=== PATIENT | male | born 1995 ===

== ENCOUNTER 2017-07-08 18:28 | Emergency (ER) | payer OTHER ==
[2017-07-08] MEDS ORDERED: LORazepam 0.5 MG Tab PO ONE (19:06)
[2017-07-08] MEDS ORDERED: LORazepam 0.5 MG Tab ONE (19:12)
[2017-07-08] MEDS ORDERED: Ondansetron 4 MG Tab.DIS ONE ×2 (19:37→20:00)
[2017-07-08] MEDS ORDERED: hydrOXYzine HCl 25 MG Tab ONE ×4 (19:57→20:33)
[2017-07-08] MEDS ORDERED: Zolpidem 5 MG Tab ONE ×2 (20:00→20:42)
[2017-07-08] MEDS ORDERED: Loperamide 2 MG Cap ONE ×2 (20:00→20:01)
--- NOTE | 2017-07-08 20:14 | EDM.PDOCBH ---
ED HPI GENERAL MEDICAL PROBLEM - General Chief Complaint: Drug or Alcohol Abuse Stated Complaint: HEROIN WITHDRAWAL-ABD PAIN; DIARRHEA Time Seen by Provider: 07/08/17 18:40 Source of Information: Reports: Patient, Family, RN History Limitations: Reports: No Limitations - History of Present Illness INITIAL COMMENTS - FREE TEXT/NARRATIVE: 21 yr male presents for withdrawal of heroin. He is with his parents and report are here from [place] and are fishing for a couple days. Parents states they would just like something for their son to help him through the withdrawals until they return home on . Mom states she works at [employer] in [employer] and is requesting Ativan to help pt settle down while waiting for ER visit. Pt states he has used Marijuana too lately. Onset: Today Onset Date: 07/08/17 Location: Reports: Abdomen, Lower Extremity, Left, Lower Extremity, Right, Other (restless legs and anxious) Improves with: Reports: Movement Worsens with: Reports: Rest Associated Symptoms: Reports: Loss of Appetite, Nausea/Vomiting. Denies: Diaphoresis Abdominal Pain Score (Numeric/FACES): 7 Bilateral Leg pain Pain Score (Numeric/FACES): 7 - Related Data Allergies Allergy/AdvReac Type Severity Reaction Status Date / Time amoxicillin Allergy Rash Verified 07/08/17 19:31 Penicillins Allergy Rash Verified 07/08/17 19:31 Home Meds: Home Meds NK [No Known Home Meds] 07/08/17 [History] ED ROS GENERAL - Review of Systems Review Of Systems: See Below Constitutional: Reports: No Symptoms HEENT: Reports: No Symptoms Respiratory: Reports: No Symptoms Cardiovascular: Reports: No Symptoms GI/Abdominal: Reports: Diarrhea, Nausea. Denies: Vomiting : Reports: No Symptoms Musculoskeletal: Reports: No Symptoms Skin: Reports: No Symptoms Neurological: Reports: No Symptoms Psychiatric: Reports: Anxiety. Denies: Confusion, Hallucinations ED EXAM, BEHAVIORAL HEALTH - Physical Exam Exam: See Below Exam Limited By: No Limitations General Appearance: Alert, WD/WN, Anxious Ears: Hearing Grossly Normal Nose: Normal Inspection Throat/Mouth: Normal Inspection, Normal Lips, Normal Voice Head: Atraumatic, Normocephalic Neck: Supple, Non-Tender Respiratory/Chest: No Respiratory Distress, Lungs Clear, Normal Breath Sounds Cardiovascular: Regular Rate, Rhythm, No Edema GI/Abdominal: Normal Bowel Sounds, Soft, Non-Tender Back Exam: Normal Inspection, Full Range of Motion Extremities: Normal Range of Motion, No Pedal Edema, Normal Capillary Refill Neurological: Alert, Normal Mood/Affect, Normal Cognition Psychiatric: Alert, Normal Cognition, Restless Skin Exam: Warm, Dry, Normal color COURSE, BEHAVIORAL HEALTH COMP - Course Vital Signs: Last Vital Signs Temp 99.0 F 07/08/17 18:43 Pulse 86 07/08/17 18:43 Resp 18 07/08/17 18:43 BP 121/73 07/08/17 18:43 Pulse Ox 99 07/08/17 18:43 Orders, Labs, Meds: Laboratory Tests 07/08/17 07/08/17 07/08/17 Range/Units 20:00 20:00 20:00 WBC 11.2 H (4.0-11.0) K/uL RBC 5.44 (4.50-6.50) M/uL Hgb 15.5 (13.0-18.0) g/dL Hct 43.9 (40.0-54.0) % MCV 81 (76-96) fL MCH 28.5 (27.0-32.0) pg MCHC 35.3 H (31.0-35.0) g/dL RDW 13.1 (11.0-16.0) % Plt Count 229 (150-400) K/uL MPV 9.5 (6.0-10.0) fL Neut % (Auto) 74.3 H (45.0-70.0) % Lymph % (Auto) 18.6 L (20.0-40.0) % Branch % (Auto) 6.7 (3.0-10.0) % Eos % (Auto) 0.3 L (1.0-5.0) % Baso % (Auto) 0.1 (0.0-0.5) % Neut # (Auto) 8.34 H (2.00-7.50) K/uL Lymph # (Auto) 2.08 (1.50-4.00) K/uL Branch # (Auto) 0.75 (0.20-0.80) K/uL Eos # (Auto) 0.03 L (0.04-0.40) K/uL Baso # (Auto) 0.01 L (0.02-0.10) K/uL Sodium 141 (136-145) mmol/L Potassium 3.8 (3.5-5.1) mmol/L Chloride 104 (98-107) mmol/L Carbon Dioxide 25.5 (21.0-32.0) mmol/L Anion Gap 15.3 H (5.0-15.0) mmol/L BUN 18 (8-26) mg/dL Creatinine 0.87 (0.70-1.30) mg/dL Est Cr Clr Drug Dosing TNP Estimated GFR (MDRD) > 60 (>60) MLS/MIN BUN/Creatinine Ratio 20.7 (6-25) Glucose 90 (74-100) mg/dL Calcium 9.5 (8.5-10.1) mg/dL Total Bilirubin 0.7 (0.0-1.0) mg/dL AST 20 (15-37) U/L ALT 23 (12-78) U/L Alkaline Phosphatase 53 (46-116) U/L Total Protein 7.7 (6.4-8.2) g/dL Albumin 4.0 (3.4-5.0) g/dL Globulin 3.7 (2.2-4.2) g/dL Albumin/Globulin Ratio 1.1 (0.8-2.0) TSH, Ultra Sensitive 0.222 L (0.358-3.740) uIU/mL Urine Color Urine Appearance (CLEAR) Urine pH (5.0-8.0) Ur Specific [place] (1.003-1.030) Urine Protein (NEGATIVE) mg/dL Urine Glucose (UA) (NEGATIVE) mg/dL Urine Ketones (NEGATIVE) mg/dL Urine Occult Blood (NEGATIVE) Urine Nitrite (NEGATIVE) Urine Bilirubin (NEGATIVE) Urine Urobilinogen (0.2-1.0) E.U./dL Ur Leukocyte Esterase (NEGATIVE) Urine RBC /HPF Urine WBC /HPF Ur Squamous Epith Cells /HPF Urine Opiates Screen (NEGATIVE) Ur Oxycodone Screen (NEGATIVE) Urine Methadone Screen (NEGATIVE) U Acetaminophen Screen (NEGATIVE) Ur Barbiturates Screen (NEGATIVE) Ur Tricyclics Screen (NEGATIVE) Ur Phencyclidine Scrn (NEGATIVE) Ur Amphetamine Screen (NEGATIVE) U Methamphetamines Scrn (NEGATIVE) U Benzodiazepines Scrn (NEGATIVE) U Cocaine Metab Screen (NEGATIVE) U Marijuana (THC) Screen (NEGATIVE) Ethyl Alcohol 0.0 (0.0-0.0) mg/dL 07/08/17 07/08/17 Range/Units 20:00 20:00 WBC (4.0-11.0) K/uL RBC (4.50-6.50) M/uL Hgb (13.0-18.0) g/dL Hct (40.0-54.0) % MCV (76-96) fL MCH (27.0-32.0) pg MCHC (31.0-35.0) g/dL RDW (11.0-16.0) % Plt Count (150-400) K/uL MPV (6.0-10.0) fL Neut % (Auto) (45.0-70.0) % Lymph % (Auto) (20.0-40.0) % Branch % (Auto) (3.0-10.0) % Eos % (Auto) (1.0-5.0) % Baso % (Auto) (0.0-0.5) % Neut # (Auto) (2.00-7.50) K/uL Lymph # (Auto) (1.50-4.00) K/uL Branch # (Auto) (0.20-0.80) K/uL Eos # (Auto) (0.04-0.40) K/uL Baso # (Auto) (0.02-0.10) K/uL Sodium (136-145) mmol/L Potassium (3.5-5.1) mmol/L Chloride (98-107) mmol/L Carbon Dioxide (21.0-32.0) mmol/L Anion Gap (5.0-15.0) mmol/L BUN (8-26) mg/dL Creatinine (0.70-1.30) mg/dL Est Cr Clr Drug Dosing Estimated GFR (MDRD) (>60) MLS/MIN BUN/Creatinine Ratio (6-25) Glucose (74-100) mg/dL Calcium (8.5-10.1) mg/dL Total Bilirubin (0.0-1.0) mg/dL AST (15-37) U/L ALT (12-78) U/L Alkaline Phosphatase (46-116) U/L Total Protein (6.4-8.2) g/dL Albumin (3.4-5.0) g/dL Globulin (2.2-4.2) g/dL Albumin/Globulin Ratio (0.8-2.0) TSH, Ultra Sensitive (0.358-3.740) uIU/mL Urine Color Brown Urine Appearance Turbid (CLEAR) Urine pH 7.0 (5.0-8.0) Ur Specific [place] 1.020 (1.003-1.030) Urine Protein Negative (NEGATIVE) mg/dL Urine Glucose (UA) Negative (NEGATIVE) mg/dL Urine Ketones 15 H (NEGATIVE) mg/dL Urine Occult Blood Negative (NEGATIVE) Urine Nitrite Negative (NEGATIVE) Urine Bilirubin Negative (NEGATIVE) Urine Urobilinogen 1.0 (0.2-1.0) E.U./dL Ur Leukocyte Esterase Negative (NEGATIVE) Urine RBC Not seen /HPF Urine WBC Not seen /HPF Ur Squamous Epith Cells Few /HPF Urine Opiates Screen Positive H (NEGATIVE) Ur Oxycodone Screen Negative (NEGATIVE) Urine Methadone Screen Negative (NEGATIVE) U Acetaminophen Screen Negative (NEGATIVE) Ur Barbiturates Screen Negative (NEGATIVE) Ur Tricyclics Screen Negative (NEGATIVE) Ur Phencyclidine Scrn Negative (NEGATIVE) Ur Amphetamine Screen Negative (NEGATIVE) U Methamphetamines Scrn Negative (NEGATIVE) U Benzodiazepines Scrn Negative (NEGATIVE) U Cocaine Metab Screen Negative (NEGATIVE) U Marijuana (THC) Screen Positive H (NEGATIVE) Ethyl Alcohol (0.0-0.0) mg/dL Medications Discontinued Medications Generic Name Dose Route Start Last Admin Trade Name Moralesq PRN Reason Stop Dose Admin Hydroxyzine HCl Confirm 07/08/17 19:57 07/08/17 20:05 Atarax Administered 07/08/17 19:58 50 mg Dose Administration 50 mg .ROUTE .STK-MED ONE Hydroxyzine HCl Confirm 07/08/17 19:58 07/08/17 20:15 Atarax Administered 07/08/17 19:59 Not Given Dose 50 mg .ROUTE .STK-MED ONE Hydroxyzine HCl Confirm 07/08/17 20:33 Atarax Administered 07/08/17 20:34 Dose 250 mg .ROUTE .STK-MED ONE Hydroxyzine HCl 600 mg 07/08/17 20:00 Atarax .ROUTE 07/08/17 20:01 .STK-MED ONE Loperamide HCl Confirm 07/08/17 20:01 07/08/17 20:05 Imodium Administered 07/08/17 20:02 4 mg Dose Administration 4 mg .ROUTE .STK-MED ONE Loperamide HCl 8 mg 07/08/17 20:00 Imodium .ROUTE 07/08/17 20:01 .STK-MED ONE Lorazepam 0.5 mg 07/08/17 19:06 07/08/17 19:10 Ativan PO 07/08/17 19:07 0.5 mg ONETIME ONE Administration Lorazepam Confirm 07/08/17 19:12 07/08/17 20:16 Ativan Administered 07/08/17 19:13 Not Given Dose 0.5 mg .ROUTE .STK-MED ONE Ondansetron HCl Confirm 07/08/17 19:37 07/08/17 19:40 Zofran Odt Administered 07/08/17 19:38 8 mg Dose Administration 8 mg .ROUTE .STK-MED ONE Ondansetron HCl 96 mg 07/08/17 20:00 Zofran Odt .ROUTE 07/08/17 20:01 .STK-MED ONE Zolpidem Tartrate Confirm 07/08/17 20:42 Ambien Administered 07/08/17 20:43 Dose 20 mg .ROUTE .STK-MED ONE Zolpidem Tartrate 20 mg 07/08/17 20:00 Ambien .ROUTE 07/08/17 20:01 .STK-MED ONE Re-Assessment/Re-Exam: Discussed pt condition and status with Dr Gauthier and Dr Warner at [facility]. Recommend Zofran for nausea, treat pt symptoms, Loperamide for loose stools, hydroxyzine 50 mg PO every 6 hour as needed anxiety. States some physicians can prescribe Methadone to assist with transition, but no one/ physician at [facility] at this time to assist with this. Discussed pt care with parents and pt. Will treat anxiety with Ativan 0.5 mg PO now, Hydroxyzine 50 mg PO now and Zofran 8 mg PO now. Waiting for results of labs. CBC, CMP, urine drug screen, U/A w micro. and TSH level, and ETOH. Will give Ambien for assist with sleep. Dispense Zofran 8 mg every 8 hr as needed nausea, (dispense 24 tablets or 4 mg). Hydroxyzine 50 mg PO every 6 hr as needed anxiety, (dispense 24 tablets of 25 mg ). Loperamide 8 mg PO after 1st loose stool, then 4mg PO every every loose stool, no more than 16 mg in 24 hour, dispense 12 tablets. Ambien PO at hs, dispense 2 tablets. Reviewed lab results with pt and parents. Recommend F/U on urine and TSH. Return to ER if symptoms worsen or uncontrolled. Return to PCP as soon as return to home this week. Departure - Departure Time of Disposition: 20:50 Disposition: Home, Self-Care 01 Condition: Good Clinical Impression: Chemical dependency - Discharge Information Instructions: Alcohol Use Disorder, Chemical Dependency, Finding Treatment for Addiction Referrals: PCP,None [Primary Care Provider] - Forms: ED Department Discharge
== END 2017-07-08 20:55 | disposition home or self-care (01) ==
LOC: LB.ED 18:28
DX: F19.20 Other psychoactive substance dependence, uncomplicated (principal); F11.23 Opioid dependence with withdrawal; Z88.0 Allergy status to penicillin; Z88.1 Allergy status to other antibiotic agents
CPT/HCPCS: 36415; 80053; 80307; 81001; 84443; 85025; 99282; A9270; G0480